=== PATIENT | female | born 1980 | race African-American/Black ===

== ENCOUNTER 2016-03-09 18:12 | Emergency (ER) | payer BC ==
[2016-03-09 18:25] VITALS: BP 142/70; PULSE 93; TEMP 98.2; BMI 28.1
--- NOTE | 2016-03-09 19:46 | PDOC ---
History of Present Illness - General Chief Complaint: Ear Problem Stated Complaint: EARACHE Time Seen by Provider: 03/09/16 19:15 History Source: Patient Exam Limitations: No Limitations - History of Present Illness Initial Comments: 03/09/16 19:46 Chief complaint: Right ear feels clogged, nasal congestion History of present illness: Pt. is a 35-year-old female with a history of asthma here today complaining of feeling as if her right ear is clogged and does not pop when she yawns. Patient reports that she has had nasal congestion for the last 5 days. Patient denies any ear pain however right ear feeling clogged is annoying to her and uncomfortable, not painful. Patient denies any cough or sore throat or any fever or any wheezing. She denies any shortness of breath. Patient has been afebrile. Patient denies any facial pain. 03/09/16 19:55 03/09/16 19:56 Timing/Duration: getting worse (over 5 days) Severity: moderate Associated Symptoms: reports: other (nasal congestion, rt. ear feels clogged) Past History - Past Medical History Allergies/Adverse Reactions: Allergies Allergy/AdvReac Type Severity Reaction Status Date / Time clindamycin HCl Allergy Verified 03/09/16 18:25 [From Cleocin] clindamycin palmitate HCl Allergy Verified 03/09/16 18:25 [From Cleocin] clindamycin phosphate Allergy Verified 03/09/16 18:25 [From Cleocin] Home Medications: Ambulatory Orders Fexofenadine/Pseudoephedrine [Juanita-D 24 Hour Tablet] 1 each PO DAILY #10 tab.er.24h MDD 1 03/09/16 Fluticasone Prop 0.05% Nasal [Flonase -] 2 spray NS DAILY #1 spray MDD 1 Asthma: Yes - Psycho/Social/Smoking Cessation Hx Suicidal Ideation: No Smoking History: Never smoked Review of Systems - Review of Systems Able to Perform ROS?: Yes Constitutional: Yes: Symptoms Reported HEENTM: Yes: Nose Congestion, Other (right ear clogged sensation not painful) Respiratory: No: Symptoms reported Cardiac (ROS): No: Symptoms Reported ABD/GI: No: Symptoms Reported : No: Symptoms Reported Musculoskeletal: No: Symptoms Reported Integumentary: No: Symptoms Reported Neurological: No: Symptoms reported *Physical Exam - Vital Signs Last Vital Signs Temp Pulse Resp BP Pulse Ox 98.2 F 93 H 16 142/70 100 03/09/16 18:23 03/09/16 18:23 03/09/16 18:23 03/09/16 18:23 03/09/16 18:23 - Physical Exam General Appearance: Yes: Appropriately Dressed HEENT: positive: TMs Normal, Nasal Congestion (left superior turbinate edema ), Hearing Grossly Normal. negative: Pharyngeal Erythema, Tonsillar Exudate, Tonsillar Erythema, Rhinorrhea, Sinus Tenderness, Hearing Decreased, Excessive drooling Neck: negative: Lymphadenopathy (R), Lymphadenopathy (L) Respiratory/Chest: positive: Lungs Clear, Normal Breath Sounds. negative: Chest Tender, Respiratory Distress Cardiovascular: positive: Regular Rhythm, Regular Rate, S1, S2 Integumentary: positive: Normal Color Neurologic: positive: Alert, Normal Response, Responsive Medical Decision Making - Medical Decision Making 03/09/16 19:51 Pt. is a 35-year-old female with a history of asthma here today complaining of feeling as if her right ear is clogged and does not pop when she yawns. Patient reports that she has had nasal congestion for the last 5 days. Patient denies any ear pain however right ear feeling clogged is annoying to her and uncomfortable. Patient denies any cough or sore throat or any fever or any wheezing. She denies any shortness of breath. Patient has been afebrile. Patient denies any facial pain. Nasal Congestion Eustachian tube dysfunction right sided Plan: Flonase 2 sprays each nostril daily until symptoms resolve Juanita D 24 hours daily for 10 days Follow-up with ear nose and throat if symptoms worsen Apply warm washcloth to face to help facilitate drainage may also put towel overhead and bending over sink with hot water on some steam hit face *DC/Admit/Observation/Transfer Diagnosis at time of Disposition: Nasal congestion Eustachian tube dysfunction Qualifiers: Laterality: right Qualified Code(s): H69.81 - Other specified disorders of Eustachian tube, right ear - Prescriptions Prescriptions: Fexofenadine/Pseudoephedrine [Juanita-D 24 Hour Tablet] 1 each PO DAILY #10 tab.er.24h MDD 1 Fluticasone Prop 0.05% Nasal [Flonase -] 2 spray NS DAILY #1 spray MDD 1 - Referrals Referrals: STAFF,NOT ON [Primary Care Provider] - Jeremie French MD [Staff Physician] - - Patient Instructions Additional Instructions: Apply warm washcloth to face to help facilitate drainage from nose as much as possible Follow-up with Dr. French ear nose and throat for further evaluation Return to emergency room if any fever or facial pain Patient voiced understanding of discharge instructions and all questions were answered
== END 2016-03-09 19:50 | disposition home or self-care (01) ==
LOC: JERFT 18:12
DX: H69.81 Other specified disorders of Eustachian tube, right ear (principal); R09.81 Nasal congestion
CPT/HCPCS: 99281-25

== ENCOUNTER 2017-01-10 18:27 | Emergency (ER) | payer BC, OTHER ==
[2017-01-10 18:34] VITALS: BP 115/84; TEMP 97.8; BMI 28.3
[2017-01-10] MEDS ORDERED: ALBUTEROL SO4 2.5/IPRATROPIUM 0.5 INH SOL 3 ML VIAL.NEB. NEB ONE ×4 (19:44→20:44)
--- NOTE | 2017-01-10 20:44 | PDOC ---
History of Present Illness - General Chief Complaint: Asthma Stated Complaint: ASTHMA Time Seen by Provider: 01/10/17 19:38 Past History - Past Medical History Allergies/Adverse Reactions: Allergies Allergy/AdvReac Type Severity Reaction Status Date / Time clindamycin HCl Allergy Verified 01/10/17 18:31 [From Cleocin] clindamycin palmitate HCl Allergy Verified 01/10/17 18:31 [From Cleocin] clindamycin phosphate Allergy Verified 01/10/17 18:31 [From Cleocin] Home Medications: Ambulatory Orders Albuterol 0.083% Nebulizer Mercedes [Ventolin 0.083% Nebulizer Soln -] 1 neb NEB Q4H #20 vial 01/10/17 Albuterol Sulfate Inhaler - [Ventolin HFA Inhaler -] 1 - 2 inh PO Q4H #1 inhaler 01/10/17 Azithromycin [Zithromax 250mg Tablets -] 250 mg PO UTDICT #6 tab 01/10/17 Prednisone [Deltasone -] 5 mg PO DAILY 01/10/17 Ranitidine HCl [Zantac] 150 mg PO BID #10 tablet 01/10/17 Asthma: Yes CVA: No COPD: No DVT: No - Immunization History Immunization Up to Date: Yes - Suicide/Smoking/Psychosocial Hx Smoking History: Never smoked Have you smoked in the past 12 months: No Information on smoking cessation initiated: No Hx Alcohol Use: No Drug/Substance Use Hx: No Substance Use Type: None *Physical Exam - Vital Signs Last Vital Signs Temp Pulse Resp BP Pulse Ox 97.8 F 73 22 115/84 100 01/10/17 18:31 01/10/17 18:31 01/10/17 18:31 01/10/17 18:31 01/10/17 18:31 ED Treatment Course - Medications Given in the ED: ED Medications Discontinued Medications Generic Name Dose Route Start Last Admin Trade Name Freq PRN Reason Stop Dose Admin Albuterol/Ipratropium 1 amp 01/10/17 20:09 01/10/17 20:17 Duoneb - NEB 01/10/17 20:10 1 amp ONCE ONE Administration *DC/Admit/Observation/Transfer Diagnosis at time of Disposition: Asthma exacerbation Qualifiers: Asthma severity: mild Asthma persistence: intermittent Qualified Code(s): J45.21 - Mild intermittent asthma with (acute) exacerbation GERD (gastroesophageal reflux disease) Qualifiers: Esophagitis presence: esophagitis presence not specified Qualified Code(s): K21.9 - Gastro-esophageal reflux disease without esophagitis - Discharge Dispostion Disposition: HOME Condition at time of disposition: Improved Admit: No - Referrals Referrals: STAFF,NOT ON [Primary Care Provider] - - Patient Instructions Printed Discharge Instructions: DI for Asthma -- Adult, DI for Gastroesophageal Reflux Disease (GERD) Additional Instructions: Your testing today was normal. Your cardiac enzymes were negative. Your chest x- ray did not show pneumonia or consolidation. Your EKG showed a normal sinus rhythm with a rate of 66 bpm. You can request a copy of your medical records on Thursday. Please use your nebulizer every 4 hours for the asthma exacerbation. Please take the azithromycin as prescribed to help with your asthma exacerbation as well. Continue to take your steroids as previously prescribed. Please take the Zantac 150mg every 12 hours for the next week. Avoid spicy/ fatty foods as they can make GERD worse. Please follow up with your primary care doctor on Thursday. Return to the ED if you have increased difficulty breathing, worsening chest pain or belching, shortness of breath or have any other changes in your symptoms. - Post Discharge Activity
[2017-01-10 21:03] VITALS: PULSE 72
[2017-01-10] MEDS ORDERED: RANITIDINE HCL 150 MG TABLET (FP) PO ONE (21:16)
[2017-01-10] MEDS ORDERED: RANITIDINE HCL 150 MG TABLET (FP) ONE (21:45)
[2017-01-10 22:38] LABS: CPK 59 IU/L (26-192); TROPONIN I < 0.02 ng/ml (0.00-0.05)
--- NOTE | 2017-01-12 14:25 | EKG ---
Test Reason : Blood Pressure : / mmHG Vent. Rate : 066 BPM Atrial Rate : 066 BPM P-R Int : 190 ms QRS Dur : 076 ms QT Int : 388 ms P-R-T Axes : 061 053 071 degrees QTc Int : 406 ms NORMAL SINUS RHYTHM NORMAL ECG WHEN COMPARED WITH ECG OF 24-AUG-2006 13:36, NO SIGNIFICANT CHANGE WAS FOUND Confirmed by WAQAS MEDINA MD ([id number]) on 01/12/2017 2:25:01 PM Referred By: Confirmed By:WAQAS MEDINA MD
== END 2017-01-10 22:48 | disposition home or self-care (01) ==
LOC: JERFT 18:27
PROC: 3E0F7GC Introduction of Other Therapeutic Substance into Respiratory Tract, Via Natural or Artificial Opening (ICD-10-PCS; principal; 2017-01-10)
PROC: 3E0F7GC Introduction of Other Therapeutic Substance into Respiratory Tract, Via Natural or Artificial Opening (ICD-10-PCS; 2017-01-10)
DX: J45.20 Mild intermittent asthma, uncomplicated (principal); K21.9 Gastro-esophageal reflux disease without esophagitis
CPT/HCPCS: 36415; 71020-TC; 82550; 84484; 93005; 93010; 99281-25

== ENCOUNTER 2018-07-08 09:54 | Emergency (ER) | payer OTHER ==
--- NOTE | 2018-07-08 09:55 | PDOC ---
History of Present Illness - General Chief Complaint: Shortness of Breath Stated Complaint: SOB Time Seen by Provider: 07/08/18 09:55 History Source: Patient Exam Limitations: No Limitations - History of Present Illness Initial Comments: 07/08/18 10:58 HPI Ms Ernandez 37 YOF with h/o GERD and asthma presenting with SOB x 2 weeks. She states she feels SOB while at rest. Occasionally had episodes of chest tightness and reflux, last episode last night but self resolved. Denies any particular triggers such as recent infections, URI, congestion or environmental allergies. She took some gas X yesterday without relief, which she attributed sx to GERD with similar presentations previously. She took her home albuterol inhaler this morning at 9AM without relief. She notes heavy periods since 05/2018, with passage of large clots and long menses up to 7 days when her usual used to be 3 days. No ocp use, but did use plan B in May 2018. She also endorses occasional left calf pain intermittently x 2 weeks, described as cramping. No trauma or falls. she does admit to recent second hand smoke exposure ~ 2 weeks. Denies fever, chills, chest pain, palpitation,weakness, N, V, D, abdominal pain , bladder and bowel problems, leg swelling, No sick contacts or travel. No new changes in medications. No suspicious food intake. No prolonged travel history, immobilization or h/o PE/DVT. Allergies: clindamycin Past Medical History: as documented in EMR/HPI Social history: Lives with family. No tobacco, ETOH or drug use. Meds: as documented in EMR 07/08/18 10:58 07/08/18 10:59 07/08/18 10:59 Past History - Past Medical History Allergies/Adverse Reactions: Allergies Allergy/AdvReac Type Severity Reaction Status Date / Time clindamycin HCl Allergy Verified 07/08/18 09:54 [From Cleocin] clindamycin palmitate HCl Allergy Verified 07/08/18 09:54 [From Cleocin] clindamycin phosphate Allergy Verified 07/08/18 09:54 [From Cleocin] Home Medications: Ambulatory Orders NK [No Known Home Medication] 07/08/18 Asthma: Yes CVA: No COPD: No DVT: No - Immunization History Immunization Up to Date: Yes - Suicide/Smoking/Psychosocial Hx Smoking History: Never smoked Have you smoked in the past 12 months: No Hx Alcohol Use: No Drug/Substance Use Hx: No Substance Use Type: None Review of Systems - Review of Systems Able to Perform ROS?: Yes Comments:: 07/08/18 10:59 Review of systems Constitutional: no fevers or chills. HEENT: no headache or dizziness. No congestion. No visual/hearing disturbances. No sore throat, ear pain. No eye pain, discharge or swelling. CVS: no cp or syncope. +chest tightness Resp: No cough. No wheezing or hemoptysis. +sob Gastrointestinal: no abdominal pain, nausea or vomiting. Genitourinary: no urinary sx, hematuria. MUSCULOSKELETAL: No joint pain and swelling. No neck or back pain. SKIN: no redness or skin changes, no discharge, no rash. No wounds. Hematologic: no easy bruising/bleeding. No h/o DVT or PE. NEUROLOGIC: No headache, dizziness, LOC or altered mental status. No weakness, numbness or tingling. Psych: no anxiety or depression Allergic/Immunologic: no allergies All other systems reviewed and negative, or as documented in HPI. *Physical Exam - Physical Exam Comments: 07/08/18 10:59 Physical exam: General: Well appearing, awake and alert, NAD. HEENT: NCAT, PERRL, EOMI, clear conjunctiva, anicteric, moist mucus membranes, clear oropharynx, no oral lesions.. Neck: neck supple, FROM Resp: CTAB, normal and even respirations, no respiratory distress; no wheezing or rhonchi. CVS: RRR, no murmurs, 2+ peripheral pulses throughout, no peripheral edema Abdomen: soft, NTND, no peritoneal signs. Back: nontender, normal inspection and ROM MSK: no edema, JOHNSON x4, ROM intact. No clubbing or cyanosis. normal bulk and tone. Extrem: no leg edema, +left calf tenderness, no spasms. Neuro: alert, Skin: warm and well perfused, cap refill <2 sec, normal color Heart Score/ECG Review #1 ECG reviewed & interpreted by me at: 10:05 General ECG Interpretation: Sinus Rhythm, Normal Rate, No acute ischemic changes Compared to previous ECG there are: No significant change 07/08/18 11:00 prolonged OH interval, 212 ms, 1st degree AV block similar to prior EKG no ST or T wave segment elevations, depressions or derangements. ED Treatment Course - LABORATORY CBC & Chemistry Diagram: 07/08/18 10:32 07/08/18 10:32 Medical Decision Making - Medical Decision Making 07/08/18 12:24 hpi as documented VS wnl, normotensive no fever, well appearing. Laboratory results reviewed, within normal limits. No evidence of anemia or electrolyte derangements. D-dimer is also negative so less likely to be pulmonary embolism or VTE. Lower extrem duplex and also negative for DVT which is reassuring On is also negative so less likely cardiac. EKG is relatively unchanged compared to prior with normal sinus rhythm, no evidence of ischemia and prolonged OH interval consistent with first-degree heart block and compared with prior EKG which was similar with borderline OH interval. She has otherwise asymptomatic and no evidence of chest pain, syncope or high-risk features to suggest cardiac etiology. X-rays clear, no evidence of infection. Edema or infiltrate or effusion. Patient was given 1 DuoNeb with some relief as well as a GI cocktail for GERD- like symptoms she remains well appearing, no return of sx and reassurance given. minimize triggers, supportive measures Pt to be discharged in stable condition. Patient made aware of impression and plan, return precautions discussed (including but not limited to worsening pain or symptoms), fevers, or signs of infection, chest pain, respiratory distress, inability to tolerate oral intake, dehydration, syncope, or neurologic changes) . Follow up with PMD as recommended, follow up information provided, take medications as instructed for duration of time. continue with supportive care, avoid triggers and precipitants. All questions answered to patient's satisfaction and expressed understanding and comfort with this. Patient does not suffer from an acute life-threatening medical condition at this time and is safe for outpatient follow-up. 07/08/18 12:53 *DC/Admit/Observation/Transfer Diagnosis at time of Disposition: Shortness of breath - Discharge Dispostion Disposition: HOME Condition at time of disposition: Stable Decision to Admit order: No - Referrals Referrals: [facility] [place] [place] [Provider Group] [facility] [Provider Group] - Patient Instructions Printed Discharge Instructions: DI for Shortness of Breath Additional Instructions: 1) Please follow-up with your primary care doctor in the next 1-2 days. Please call tomorrow for for any urgent issues. 2) You were given a copy of the tests performed today. Please bring the results with you and review them with your primary care doctor. Your laboratory / imaging results were normal, including blood test for cardiac disease/heart attack and blood clots. your ultrasound was negative for clot your chest x ray was also clear. 3) If you have any worsening of symptoms or any other concerns please return to the ED immediately. Return if worsening symptoms including fevers, headache, vomiting, visual or hearing disturbances, abdominal pain, chest pain, shortness of breath, syncope, dehydration, inability to take things by mouth/vomiting, altered mental status, or worsening concerning symptoms. 4) Please continue taking your home medications as directed. avoid potential triggers in the environment for your shortness of breath avoid any food triggers as well for your reflux. Stay well hydrated and rest adequately. Make an appointment. If you cannot follow-up with your primary care doctor please return to the ED - Post Discharge Activity
[2018-07-08 09:57] VITALS: BP 113/71; PULSE 71; TEMP 97.7; BMI 28.7
[2018-07-08] MEDS ORDERED: ALBUTEROL SO4 2.5/IPRATROPIUM 0.5 INH SOL 3 ML VIAL.NEB. NEB ONE ×2 (10:25→10:33)
[2018-07-08] MEDS ORDERED: FAMOTIDINE 20 MG/50 ML IVPB 20 MG/50 ML MG IVPB ONE ×2 (10:25→10:33)
[2018-07-08] MEDS ORDERED: MAG HYDROX/AL HYDROX/SIMETH 30 ML UNIT-DOSE CUP PO ONE (10:25)
[2018-07-08] MEDS ORDERED: MAG HYDROX/AL HYDROX/SIMETH 30 ML UNIT-DOSE CUP ONE (10:33)
[2018-07-08 10:48] LABS: BASO % 0.8 % (0-2.0); EOS % 7.3 % (0-4.5); HEMATOCRIT 34.8 % (32.4-45.2); HEMOGLOBIN 11.6 GM/dl (10.7-15.3); MCHC 33.5 g/dl (32.0-36.0); MEAN CELL VOLUME 92.6 fl (80-96); MEAN PLT VOLUME 9.8 fl (7.5-11.1); NEUT % 50.9 % (42.8-82.8); PLATELET COUNT 271 K/MM3 (134-434); RBC 3.76 M/mm3 (3.60-5.2)
[2018-07-08 10:59] LABS: ALBUMIN 3.8 g/dl (3.4-5.0); BILIRUBIN,TOTAL 0.5 mg/dl (0.2-1); CALCIUM 9.2 mg/dl (8.5-10); CREATININE 0.6 mg/dl (0.55-1.3); POTASSIUM 3.8 mmol/L (3.5-5.1); TOT PROT 6.3 g/dl (6.4-8.2)
--- NOTE | 2018-07-08 13:15 | EKG ---
Test Reason : Blood Pressure : / mmHG Vent. Rate : 060 BPM Atrial Rate : 060 BPM P-R Int : 212 ms QRS Dur : 076 ms QT Int : 392 ms P-R-T Axes : 068 044 055 degrees QTc Int : 392 ms SINUS RHYTHM WITH SINUS ARRHYTHMIA WITH 1ST DEGREE A-V BLOCK OTHERWISE NORMAL ECG WHEN COMPARED WITH ECG OF 10-JAN-2017 21:31, NO SIGNIFICANT CHANGE WAS FOUND Confirmed by CHRISSY MCKEON, FERNIE ([id number]) on 07/08/2018 1:15:04 PM Referred By: SEGUN LLAMAS Confirmed By:FERNIE LOWE MD
== END 2018-07-08 12:58 | disposition home or self-care (01) ==
LOC: FER 09:54
PROC: 3E0F7GC Introduction of Other Therapeutic Substance into Respiratory Tract, Via Natural or Artificial Opening (ICD-10-PCS; principal; 2018-07-08)
PROC: 3E033GC Introduction of Other Therapeutic Substance into Peripheral Vein, Percutaneous Approach (ICD-10-PCS; 2018-07-08)
DX: R06.02 Shortness of breath (principal)
CPT/HCPCS: 36415; 71046-TC-FY; 80053; 84484; 85025; 85379; 93005; 93971-TC; 99283-25

== ENCOUNTER 2021-03-05 11:03 | Emergency (ER) | payer OTHER ==
[2021-03-05 11:14] VITALS: BP 123/72; PULSE 72; TEMP 98; BMI 28.7
[2021-03-05] MEDS ORDERED: ALBUTEROL SO4 HFA INHALER IH ONE ×2 (11:36→11:52)
[2021-03-05] MEDS ORDERED: predniSONE 20 MG TABLET (UD) PO ONE (11:39)
[2021-03-05] MEDS ORDERED: ALBUTEROL SO4 2.5/IPRATROPIUM 0.5 INH SOL 3 ML VIAL.NEB. NEB SCH (11:45)
[2021-03-05] MEDS ORDERED: predniSONE 20 MG TABLET (UD) ONE (11:52)
[2021-03-05] MEDS ORDERED: LIDOCAINE HCL 2% (20ML MULTI-DOSE VIAL) ONE (14:52)
== END 2021-03-05 12:06 | disposition home or self-care (01) ==
LOC: FER 11:03
DX: J45.30 Mild persistent asthma, uncomplicated (principal); J45.21 Mild intermittent asthma with (acute) exacerbation
CPT/HCPCS: 71045-TC-FY; 87804; 99284-25; C9803; U0003; U0005

== ENCOUNTER 2021-04-23 15:50 | Emergency (ER) | payer OTHER ==
[2021-04-23 16:08] VITALS: BP 117/60; PULSE 82; TEMP 98.3; BMI 28.7
[2021-04-23] MEDS ORDERED: ACETAMINOPHEN 325 MG TABLET (FP) PO ONE (16:22)
[2021-04-23] MEDS ORDERED: ACETAMINOPHEN 325 MG TABLET (FP) ONE (16:24)
[2021-04-23] MEDS ORDERED: IBUPROFEN 400 MG TABLET (FP) PO ONE ×2 (16:24→16:26)
== END 2021-04-23 18:23 | disposition home or self-care (01) ==
LOC: FER 15:50
DX: R22.42 Localized swelling, mass and lump, left lower limb (principal)
CPT/HCPCS: 73562-TC-LT-FY; 93971-TC; 99284-25

== ENCOUNTER 2022-01-29 13:37 | Emergency (ER) | payer OTHER ==
[2022-01-29 13:57] VITALS: BP 110/32; PULSE 77; RESP 20; TEMP 98.9; BMI 28.3
[2022-01-29] MEDS ORDERED: ACETAMINOPHEN 325 MG TABLET (FP) PO ONE (14:06)
[2022-01-29] MEDS ORDERED: IBUPROFEN 400 MG TABLET (FP) PO ONE (14:06)
[2022-01-29] MEDS ORDERED: ACETAMINOPHEN 325 MG TABLET (FP) ONE (14:21)
[2022-01-29] MEDS ORDERED: IBUPROFEN 600 MG TABLET (FP) PO ONE (14:22)
[2022-01-29 14:36] LABS: EPITHELIAL CELLS FEW /hpf; URINE MUCUS 2+
[2022-01-29 14:47] LABS: HEMATOCRIT 29.9 % (32.4-45.2); HEMOGLOBIN 9.7 G/dL (10.7-15.3); MCH 24.6 pg (25.7-33.7); MCHC 32.5 g/dl (32.0-36.0); MEAN CELL VOLUME 75.8 fl (80-96); MEAN PLT VOLUME 9.5 fl (7.5-11.1); PLATELET COUNT 349.3 10^3/uL (134-434); RBC 3.95 10^6/uL (3.60-5.2); RDW 25.3 % (11.6-15.6); WHITE BLOOD COUNT 6.4 10^3/uL (4.0-10.8)
[2022-01-29 14:53] LABS: ALBUMIN 3.9 g/dl (3.4-5.0); BILIRUBIN,TOTAL 0.5 mg/dl (0.2-1); CALCIUM 8.6 mg/dl (8.5-10); CREATININE 0.6 mg/dl (0.55-1.3); TOT PROT 6.8 g/dl (6.4-8.2)
[2022-01-29 15:03] LABS: PLATELET ESTIMATE ADEQUATE
== END 2022-01-29 16:26 | disposition home or self-care (01) ==
LOC: FER 13:37
DX: R10.9 Unspecified abdominal pain (principal)
CPT/HCPCS: 36415; 76830-TC; 80053; 81003; 81015; 83690; 84703; 85027; 99284-25